=== PATIENT | female | born 1950 | race Caucasian/White ===

== ENCOUNTER 2018-01-20 19:57 | Inpatient (IN) ==
[2018-01-20] MEDS ORDERED: 0.9 % Sodium Chloride 1,000 ML IVC ONE (20:22)
--- NOTE | 2018-01-20 20:50 | Emergency Department Note ---
Disposition Clinical Impression: Elevated troponin Sepsis Qualifiers: Sepsis type: sepsis due to unspecified organism Qualified Code(s): A41.9 - Sepsis, unspecified organism UTI (urinary tract infection) Qualifiers: Urinary tract infection type: site unspecified Hematuria presence: with hematuria Qualified Code(s): N39.0 - Urinary tract infection, site not specified Disposition: Admitted As Inpatient Condition: Fair Time of Disposition: 21:39 General Adult HPI - General Chief complaint: ED General Medical Stated complaint: fever Time Seen by Provider: 01/20/18 20:22 Source: patient Mode of arrival: ambulatory Limitations: no limitations Nursing Notes Reviewed: Yes Vital Signs Reviewed: Yes - History of Present Illness HPI Narrative: Patient presents to the ED with the chief complaint of fever. Patient was recently seen at the [facility] for ovarian cancer removal. Says about 2 weeks ago. States that she was started on Coumadin for blood clots. Was discharged and presented here previously with bleeding and was subsequently transferred back to the [facility] with a gave her vitamin K and stopped her Coumadin. She states that she has felt okay until yesterday and this morning when she started having subjective fever, but more so chills and rigors. She had 1 episode of nonbloody, nonbilious emesis earlier today. No associated chest pain, shortness of breath, nausea, diarrhea, abdominal pain, pain or swelling in her legs. No cough. Pain Scale: 0 - Related Data Home Medications Medication Instructions Recorded Confirmed Loratadine [Allergy Relief] 10 mg PO DAILY 06/01/17 01/20/18 Multivitamin [Multivitamins] 1 cap PO DAILY 06/01/17 01/20/18 [place]-3/Dha/Epa/Fish Oil [Fish Oil 1 each PO DAILY 06/01/17 01/20/18 1,000 mg Softgel] Pravastatin Sodium [Pravachol] 20 mg PO QPM 06/01/17 01/20/18 Vitamin E (Dl,Tocopheryl Acet) 400 unit PO DAILY 06/11/17 01/20/18 [Vitamin E] Warfarin [Coumadin] 7.5 mg PO DAILY 01/10/18 01/20/18 Docusate Sodium [Dok] 100 mg PO BID 01/20/18 01/20/18 Previous Rx's Medication Instructions Recorded Metoprolol XL (24 HR) Succ [Toprol 50 mg PO DAILY #30 tab.er.24h 06/05/17 Xl] Polyethylene Glycol 3350 [MiraLAX] 17 gm PO DAILY PRN #30 powd.pack 08/12/17 Allergies Allergy/AdvReac Type Severity Reaction Status Date / Time azithromycin Allergy Rash Verified 01/20/18 20:08 [From Zithromax Z-[place]] Oxycodone AdvReac Dizziness Verified 01/20/18 20:09 Review of Systems: As reviewed in the HPI. All other systems reviewed are negative or normal. Past Medical History - Past Medical History Attestation: Yes The following information was validated with the patient. Source: patient Medical history: Reports: hyperlipidemia, hypertension, pulmonary embolus Surgical history: Reports: no surgical history Psychiatric history: Reports: anxiety - Social History Smoking Status: Never smoker Smokeless Tobacco Status: No Alcohol use: Reports: none Drug use: Reports: none Physical Exam - General Limitations: no limitations General appearance: alert, in no apparent distress - Head Head exam: atraumatic, normocephalic, normal inspection - Eye Eye exam: Present: normal appearance, PERRL, EOMI - ENT ENT exam: normal exam, normal oropharynx, mucous membranes moist - Chest Chest inspection: Present: normal inspection, symmetric chest wall rise - Respiratory Respiratory exam: Present: normal lung sounds bilaterally - Cardiovascular Cardiovascular exam: Present: normal rhythm, tachycardia, normal heart sounds. Absent: regular rate - Abdominal Exam Abdominal exam: Present: soft, Non-Tender. Absent: tenderness, distention, guarding, rebound, rigidity - Extremities Exam Extremities exam: Present: normal inspection, full ROM. Absent: tenderness, pedal edema - Back Exam Back exam: Present: normal inspection, full ROM. Absent: tenderness - Neurological Exam Neurological exam: Present: alert, oriented X3 - Psychiatric Psychiatric exam: Present: normal affect, normal mood - Skin Skin exam: Present: warm, dry, intact, normal color Course Course Narrative: patient presenting with presumed sepsis from UTI due to urinary frequency. BP ok now but is tachycardic. No CP/SOB. Will get sepsis labs and UA. - Reevaluation(s) Reevaluation #1: Admitted to the hospitalist. Did start on Zosyn due to recent hospital stays. HGB stable, Lactic NL. Mentating well, and cap refill remains normal. Did have a isolated low BP so will get IVF and recheck. meets sepsis criteria due to HR and WBC with UTI. Does not appear to be in septic shock and has no end organ dysfunction. Time: 21:37 Reevaluation #3: Lab did call patient is an elevated troponin at 0.05. No chest pain Vital Signs Temperature 98.6 F 01/20/18 20:09 Pulse Rate 128 01/20/18 20:09 Respiratory Rate 16 01/20/18 20:09 Blood Pressure 105/55 01/20/18 20:09 O2 Sat by Pulse Oximetry 93 01/20/18 20:09 Temperature 98.1 F 01/21/18 01:33 Pulse Rate 122 01/21/18 01:33 Respiratory Rate 16 01/21/18 01:33 Blood Pressure 101/58 01/21/18 01:33 O2 Sat by Pulse Oximetry 94 01/21/18 01:33 Oxygen Delivery Oxygen Delivery Room Air Medical Decision Making - Medical Records Medical records reviewed: Yes I reviewed the patient's medical records. - Lab Data Lab results reviewed: Yes I reviewed the patient's lab results. Result diagrams: 01/20/18 20:45 01/20/18 20:45 Lab Results 01/20/18 01/20/18 01/20/18 Range/Units 20:44 20:45 20:45 WBC 18.5 H (4.3-11.1) K/mcL RBC 2.99 L (3.82-4.97) M/mcL Hgb 9.6 L (11.5-15.4) g/dL Hct 28.4 L (35.3-44.9) % MCV 95.0 (83.0-100.0) fL MCH 32.1 (28.0-33.3) pg MCHC 33.8 (31.6-35.5) g/dL RDW 17.1 H (11.5-14.5) % Plt Count 266 (140-400) K/mcL MPV 9.0 L (9.4-12.4) fL Immature Gran % 1.5 (0-4) % Seg Neutrophils % 90.2 % Lymphocytes % 4.0 % Monocytes % 4.1 % Eosinophils % 0.0 % Basophils % 0.2 % Neutrophils # 16.7 H (1.6-8.9) K/mcL Lymphocytes # 0.7 (0.6-4.6) K/mcL Monocytes # 0.8 (0.0-1.3) K/mcL Eosinophils # 0.0 (0.0-0.6) K/mcL Basophils # 0.0 (0.0-0.2) K/mcL Nucleated RBCs/100 WBC 0.2 H (0) /100 WBC PT 35.4 H (9.4-12.1) Seconds INR 3.2 APTT 35.5 (26.0-36.0) Seconds Sodium (136-145) mEq/L Potassium (3.5-5.1) mEq/L Chloride (98-107) mEq/L Carbon Dioxide (23-29) mEq/L BUN (8-23) mg/dL Creatinine (0.60-1.20) mg/dL Est GFR ( Amer) (> 60) Est GFR (Non-Af Amer) (> 60) BUN/Creatinine Ratio (6-26) Glucose (70-105) mg/dL Calculated Osmolality (280-300) Lactic Acid 0.9 (0.5-2.2) mmol/L Calcium (8.6-10.3) mg/dL Total Bilirubin (0.3-1.0) mg/dL Direct Bilirubin (0.0-0.2) mg/dL Indirect Bilirubin (0.0-1.2) mg/dL AST (13-39) Units/L ALT (7-52) Units/L Alkaline Phosphatase (34-104) Units/L Troponin I (< 0.04) ng/mL Serum Total Protein (6.4-8.9) g/dL Albumin (3.5-5.7) g/dL Globulin (2.4-3.5) g/dL Albumin/Globulin Ratio (1.1-2.2) Lipase (11-82) Units/L Urine Color (Yellow) Urine Clarity (Clear) Urine pH (5.0-8.0) pH Units Ur Specific [place] (1.010-1.025) Urine Protein (Neg-Trace) mg/dL Urine Glucose (UA) (Normal) mg/dL Urine Ketones (Negative) mg/dL Urine Blood (Negative) Urine Nitrite (Negative) Urine Bilirubin (Negative) Urine Urobilinogen (Normal) mg/dL Ur Leukocyte Esterase (Negative) Urine Microscopic RBC (0-3) per hpf Urine Microscopic WBC (0-3) per hpf Ur Squamous Epith Cells (None-Few) per lpf Urine Bacteria (None-Few) per hpf Ur Culture Indicated? (NO) 01/20/18 01/20/18 Range/Units 20:45 20:58 WBC (4.3-11.1) K/mcL RBC (3.82-4.97) M/mcL Hgb (11.5-15.4) g/dL Hct (35.3-44.9) % MCV (83.0-100.0) fL MCH (28.0-33.3) pg MCHC (31.6-35.5) g/dL RDW (11.5-14.5) % Plt Count (140-400) K/mcL MPV (9.4-12.4) fL Immature Gran % (0-4) % Seg Neutrophils % % Lymphocytes % % Monocytes % % Eosinophils % % Basophils % % Neutrophils # (1.6-8.9) K/mcL Lymphocytes # (0.6-4.6) K/mcL Monocytes # (0.0-1.3) K/mcL Eosinophils # (0.0-0.6) K/mcL Basophils # (0.0-0.2) K/mcL Nucleated RBCs/100 WBC (0) /100 WBC PT (9.4-12.1) Seconds INR APTT (26.0-36.0) Seconds Sodium 133 L (136-145) mEq/L Potassium 3.8 (3.5-5.1) mEq/L Chloride 102 (98-107) mEq/L Carbon Dioxide 23 (23-29) mEq/L BUN 14 (8-23) mg/dL Creatinine 0.56 L (0.60-1.20) mg/dL Est GFR ( Amer) > 60 (> 60) Est GFR (Non-Af Amer) > 60 (> 60) BUN/Creatinine Ratio 25 (6-26) Glucose 144 H (70-105) mg/dL Calculated Osmolality 279 L (280-300) Lactic Acid (0.5-2.2) mmol/L Calcium 9.4 (8.6-10.3) mg/dL Total Bilirubin 1.4 H (0.3-1.0) mg/dL Direct Bilirubin 0.3 H (0.0-0.2) mg/dL Indirect Bilirubin 1.1 (0.0-1.2) mg/dL AST 38 (13-39) Units/L ALT 54 H (7-52) Units/L Alkaline Phosphatase 75 (34-104) Units/L Troponin I 0.05 H* (< 0.04) ng/mL Serum Total Protein 6.2 L (6.4-8.9) g/dL Albumin 2.9 L (3.5-5.7) g/dL Globulin 3.3 (2.4-3.5) g/dL Albumin/Globulin Ratio 0.9 L (1.1-2.2) Lipase 43 (11-82) Units/L Urine Color Yellow (Yellow) Urine Clarity Turbid A (Clear) Urine pH 6.0 (5.0-8.0) pH Units Ur Specific [place] 1.011 (1.010-1.025) Urine Protein 30 H (Neg-Trace) mg/dL Urine Glucose (UA) Normal (Normal) mg/dL Urine Ketones Negative (Negative) mg/dL Urine Blood Moderate H (Negative) Urine Nitrite Positive A (Negative) Urine Bilirubin Negative (Negative) Urine Urobilinogen Normal (Normal) mg/dL Ur Leukocyte Esterase Large H (Negative) Urine Microscopic RBC 0-3 (0-3) per hpf Urine Microscopic WBC TNTC H (0-3) per hpf Ur Squamous Epith Cells Few (None-Few) per lpf Urine Bacteria Many H (None-Few) per hpf Ur Culture Indicated? YES A (NO) - Radiology Data Radiology results reviewed: Yes I reviewed the patient's radiology results. - EKG Data EKG #1 EKG attestation: Yes I reviewed and interpreted this EKG. EKG results narrative: Sinus tach, rate 120, LIMA 126, QRS 89, QTC 370, normal axis, no acute ischemic changes Attestation Statement - Attestation Attestation: I examined this patient and my medical decision-making was reviewed with the Resident Physician. I agree with the documented findings, disposition and treatment plan as described except to the extent set forth below.
[2018-01-20 20:59] LABS: Basophils % 0.2 %; Hematocrit 28.4 % (35.3-44.9); Hemoglobin 9.6 g/dL (11.5-15.4); Immature Granulocytes % 1.5 % (0-4); Lymphocytes # 0.7 K/mcL (0.6-4.6); Mean Corpuscular HGB Conc 33.8 g/dL (31.6-35.5); Mean Corpuscular Hemoglobin 32.1 pg (28.0-33.3); Monocytes # 0.8 K/mcL (0.0-1.3); Monocytes % 4.1 %; Neutrophils # 16.7 K/mcL (1.6-8.9); Nucleated Red Blood Cells 0.2 /100 WBC (0); Platelet Count 266 K/mcL (140-400); Red Blood Count 2.99 M/mcL (3.82-4.97); Red Cell Distribution Width 17.1 % (11.5-14.5); Segmented Neutrophils % 90.2 %
[2018-01-20 21:05] LABS: Bilirubin,Urine Negative (Negative); Blood,Urine Moderate (Negative); Clarity,Urine Turbid (Clear); Color,Urine Yellow (Yellow); Glucose,Urine (UA) Normal (Normal); Ketones,Urine Negative (Negative); Leukocyte Esterase,Urine Large (Negative); Nitrite,Urine Positive (Negative); Protein,Urine 30 mg/dL (Neg-Trace); Specific Gravity,Urine 1.011 (1.010-1.025); Urobilinogen,Urine Normal (Normal)
[2018-01-20 21:05] LABS: INR 3.2; Prothrombin Time 35.4 Seconds (9.4-12.1)
[2018-01-20 21:07] LABS: Activated Partial Thrombo Time 35.5 Seconds (26.0-36.0)
[2018-01-20 21:25] LABS: Bacteria,Urine Many per hpf (None-Few); RBC,Urine 0-3 per hpf (0-3); Squamous Epithelial Cell,Urine Few per lpf (None-Few); WBC,Urine TNTC per hpf (0-3)
[2018-01-20] MEDS ORDERED: Piperacillin/Tazobactam 3.375 GM in 0.9 % Sodium Chloride Mini Bag 100 ML IVPB ONE (21:31)
[2018-01-20] MEDS: 0.9 % Sodium Chloride 1,000 ML IVC SCH ×2 (21:47→23:31)
[2018-01-20] MEDS ORDERED: GI Cocktail 40 ML EACH PO ONE (21:48)
[2018-01-20 22:29] LABS: Alanine Aminotransferase 54 Units/L (7-52); Albumin 2.9 g/dL (3.5-5.7); Albumin/Globulin Ratio 0.9 (1.1-2.2); Alkaline Phosphatase 75 Units/L (34-104); Aspartate Amino Transferase 38 Units/L (13-39); BUN/Creatinine Ratio 25 (6-26); Bilirubin,Direct 0.3 mg/dL (0.0-0.2); Bilirubin,Indirect 1.1 mg/dL (0.0-1.2); Bilirubin,Total 1.4 mg/dL (0.3-1.0); Blood Urea Nitrogen 14 mg/dL (8-23); Calcium 9.4 mg/dL (8.6-10.3); Carbon Dioxide 23 mEq/L (23-29); Chloride 102 mEq/L (98-107); Globulin 3.3 g/dL (2.4-3.5); Glucose 144 mg/dL (70-105); Lipase 43 Units/L (11-82); Osmolality,Calculated 279 (280-300); Potassium 3.8 mEq/L (3.5-5.1); Sodium 133 mEq/L (136-145); Total Protein 6.2 g/dL (6.4-8.9); eGFR For African Americans > 60 (> 60); eGFR For Non-African Americans > 60 (> 60)
[2018-01-20] MEDS ORDERED: Naloxone 0.4 MG/ML INJ IVP PRN (22:30)
--- NOTE | 2018-01-20 22:37 | Internal Med History&Physical ---
Date of Encounter: 01/20/18 Time of Encounter: 22:35 Internal Medicine - H&P: HPI Chief complaint: chills, rigors, urinary frequency History of present illness: Ms. Gaffney is a 68 year old female who presents with UTI and SIRS syndrome She started to develop symptoms yesterday with urinary frequency with nocturia almost every hour last night that did not improve with time. Today she developed emesis that is associated with half an hour of chills and rhinitis at about 3:30 PM. Of note she had a complicated history to include initial right lower extremity DVT and a PE that was provoked by ovarian cancer in last May. She subsequently underwent neoadjuvant chemotherapy before completing a total abdominal hysterectomy, bilateral oophorectomy at the [facility] on this year. She also report rectocele repair. Postoperatively surgery was complicated by bleeding where she was at [facility] for 1 week and was discharged on Friday. At [facility] her anticoagulation was reversed by vitamin K and was watched. She improve with conservative therapy and was discharged back on Coumadin this past Friday. EKG personally reviewed with rate 120, sinus tachycardia Past Med Surg Social Fam HX - Past Medical History Medical history: hyperlipidemia, hypertension, pulmonary embolus Psychiatric history: anxiety - Past Surgical History Surgical History: no surgical history - Social History Smoking Status: Never smoker Smokeless Tobacco Status: No Alcohol use: none Drug use: none - Family History Father Family Member Ethnicity: Non- Living Status: Hx Family Cardiac Disorders: Yes Mother Hx Family Respiratory Disorders: Yes Hx Family Neurologic Disorders: Yes (CVA) Internal Medicine - H&P: Meds Loratadine [Allergy Relief] 10 mg PO DAILY 06/01/17 [History] Multivitamin [Multivitamins] 1 cap PO DAILY 06/01/17 [History] [place]-3/Dha/Epa/Fish Oil [Fish Oil 1,000 mg Softgel] 1 each PO DAILY 06/01/17 [ History] Pravastatin Sodium [Pravachol] 20 mg PO QPM 06/01/17 [History] Metoprolol XL (24 HR) Succ [Toprol Xl] 50 mg PO DAILY #30 tab.er.24h 06/05/17 [ Rx] Vitamin E (Dl,Tocopheryl Acet) [Vitamin E] 400 unit PO DAILY 06/11/17 [History] Polyethylene Glycol 3350 [MiraLAX] 17 gm PO DAILY PRN #30 powd.pack 08/12/17 [Rx ] Warfarin [Coumadin] 7.5 mg PO DAILY 01/10/18 [History] Docusate Sodium [Dok] 100 mg PO BID 01/20/18 [History] 3 Allergy/AdvReac Type Severity Reaction Status Date / Time azithromycin Allergy Rash Verified 01/20/18 20:08 [From Zithromax Z-[place]] Oxycodone AdvReac Dizziness Verified 01/20/18 20:09 All Systems PM: A 10-system review of systems was performed and is negative for pertinent findings except as documented above in the HPI. Review of systems: ROS 14 point review of systems reviewed as best as possible given presentation. Pertinent positive or negative as per HPI or otherwise reviewed as negative - Constitutional Vitals: Temp Pulse Resp BP Pulse Ox 98.6 F 108 16 129/68 94 01/20/18 20:09 01/20/18 21:42 01/20/18 21:42 01/20/18 21:42 01/20/18 21:42 Exam: General - AAO x 3 Psych - Appropriate affect/speech. No agitation Eyes - PHILIPP. Eye lids intact. No scleral icterus Heart - Sinus tachycardia. RRR. S1 and S2 present. No added HS/murmurs appreciated. No elevated JVD appreciated. Lung - Adequate air entry b/l, No crackles/wheezes appreciated GI - Soft, non-tender. No hepatosplenomegaly/ascites. BS+ - No CVA/suprapubic tenderness or palpable bladder distension Skin - Intact. No rash/petechiae/ecchymosis. Warm extremities MSK - Joints with normal ROM. No joint swellings Internal Med - H&P Results - Labs CBC & Chem 7: 01/20/18 20:45 01/20/18 20:45 Labs: Short CBC 01/20/18 Range/Units 20:45 WBC 18.5 H (4.3-11.1) K/mcL Hgb 9.6 L (11.5-15.4) g/dL Hct 28.4 L (35.3-44.9) % Plt Count 266 (140-400) K/mcL Neutrophils # 16.7 H (1.6-8.9) K/mcL BMP 05/29/18 20:45 Sodium 133 L Potassium 3.8 Chloride 102 Carbon Dioxide 23 BUN 14 Creatinine 0.56 L Glucose 144 H Calcium 9.4 Liver Function 01/20/18 Range/Units 20:45 Total Bilirubin 1.4 H (0.3-1.0) mg/dL Direct Bilirubin 0.3 H (0.0-0.2) mg/dL AST 38 (13-39) Units/L ALT 54 H (7-52) Units/L Alkaline Phosphatase 75 (34-104) Units/L Albumin 2.9 L (3.5-5.7) g/dL Urine 01/20/18 Range/Units 20:58 Urine Color Yellow (Yellow) Urine Clarity Turbid A (Clear) Urine pH 6.0 (5.0-8.0) pH Units Ur Specific [place] 1.011 (1.010-1.025) Urine Protein 30 H (Neg-Trace) mg/dL Urine Glucose (UA) Normal (Normal) mg/dL - Assessment and plan (1) UTI (urinary tract infection) Current Visit: Yes Status: Acute Assessment and plan: empiric IV rocephin Urine cx, blood cx pend Qualifiers: Urinary tract infection type: site unspecified Hematuria presence: with hematuria Qualified Code(s): N39.0 - Urinary tract infection, site not specified; R31.9 - Hematuria, unspecified (2) SIRS (systemic inflammatory response syndrome) Current Visit: Yes Status: Acute Assessment and plan: due to UTI, empiric antibiotics above (3) Ovarian cancer Current Visit: Yes Status: Acute Assessment and plan: s/p ENRRIQUE/BSO c/b bleeding which improved with conservative therapy continue outpatient care with onc and gynecological assistant onc Qualifiers: Laterality: left Qualified Code(s): 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 Due to bleeding recently, target low 2 (6) Atrial flutter with rapid ventricular response Current Visit: No Status: Acute Assessment and plan: hx of AFib/Flutter continue maxwell saud - Time Spent With Patient Total time spent is greater than 50% in coordination of care (as documented) at patient's floor/unit and/or counseling patient:
[2018-01-20 22:52] LABS: Troponin I 0.05 ng/mL (< 0.04)
[2018-01-20] MEDS ORDERED: Ondansetron 4 MG/2 ML VIAL IVP ONE (23:59)
[2018-01-21] MEDS ORDERED: Ondansetron 4 MG/2 ML VIAL ONE (00:03)
--- NOTE | 2018-01-21 01:51 | Emergency Department Note ---
Disposition Clinical Impression: Elevated troponin Sepsis Qualifiers: Sepsis type: sepsis due to unspecified organism Qualified Code(s): A41.9 - Sepsis, unspecified organism UTI (urinary tract infection) Qualifiers: Urinary tract infection type: site unspecified Hematuria presence: with hematuria Qualified Code(s): N39.0 - Urinary tract infection, site not specified Disposition: Admitted As Inpatient Condition: Fair General Adult HPI - General Chief complaint: ED General Medical Stated complaint: fever Time Seen by Provider: 01/20/18 20:22 Source: patient Mode of arrival: ambulatory Limitations: no limitations - History of Present Illness Pain Scale: 0 - Related Data Home Medications Medication Instructions Recorded Confirmed Loratadine [Allergy Relief] 10 mg PO DAILY 06/01/17 01/20/18 Multivitamin [Multivitamins] 1 cap PO DAILY 06/01/17 01/20/18 [place]-3/Dha/Epa/Fish Oil [Fish Oil 1 each PO DAILY 06/01/17 01/20/18 1,000 mg Softgel] Pravastatin Sodium [Pravachol] 20 mg PO QPM 06/01/17 01/20/18 Vitamin E (Dl,Tocopheryl Acet) 400 unit PO DAILY 06/11/17 01/20/18 [Vitamin E] Warfarin [Coumadin] 7.5 mg PO DAILY 01/10/18 01/20/18 Docusate Sodium [Dok] 100 mg PO BID 01/20/18 01/20/18 Previous Rx's Medication Instructions Recorded Metoprolol XL (24 HR) Succ [Toprol 50 mg PO DAILY #30 tab.er.24h 06/05/17 Xl] Polyethylene Glycol 3350 [MiraLAX] 17 gm PO DAILY PRN #30 powd.pack 08/12/17 Allergies Allergy/AdvReac Type Severity Reaction Status Date / Time azithromycin Allergy Rash Verified 01/20/18 20:08 [From Zithromax Z-[place]] Oxycodone AdvReac Dizziness Verified 01/20/18 20:09 Past Medical History - Past Medical History Medical history: Reports: cancer, hyperlipidemia, hypertension, pulmonary embolus Surgical history: Reports: no surgical history Psychiatric history: Reports: anxiety - Social History Smoking Status: Never smoker Smokeless Tobacco Status: No Alcohol use: Reports: none Drug use: Reports: none Physical Exam - General Limitations: no limitations General appearance: alert, in no apparent distress Course Vital Signs Temperature 98.6 F 01/20/18 20:09 Pulse Rate 128 01/20/18 20:09 Respiratory Rate 16 01/20/18 20:09 Blood Pressure 105/55 01/20/18 20:09 O2 Sat by Pulse Oximetry 93 01/20/18 20:09 Temperature 98.1 F 01/21/18 01:33 Pulse Rate 122 01/21/18 01:33 Respiratory Rate 16 01/21/18 01:33 Blood Pressure 101/58 01/21/18 01:33 O2 Sat by Pulse Oximetry 94 01/21/18 01:33 Oxygen Delivery Oxygen Delivery Room Air Medical Decision Making - Lab Data Result diagrams: 01/20/18 20:45 01/20/18 20:45 Lab Results 01/20/18 01/20/18 01/20/18 Range/Units 20:44 20:45 20:45 WBC 18.5 H (4.3-11.1) K/mcL RBC 2.99 L (3.82-4.97) M/mcL Hgb 9.6 L (11.5-15.4) g/dL Hct 28.4 L (35.3-44.9) % MCV 95.0 (83.0-100.0) fL MCH 32.1 (28.0-33.3) pg MCHC 33.8 (31.6-35.5) g/dL RDW 17.1 H (11.5-14.5) % Plt Count 266 (140-400) K/mcL MPV 9.0 L (9.4-12.4) fL Immature Gran % 1.5 (0-4) % Seg Neutrophils % 90.2 % Lymphocytes % 4.0 % Monocytes % 4.1 % Eosinophils % 0.0 % Basophils % 0.2 % Neutrophils # 16.7 H (1.6-8.9) K/mcL Lymphocytes # 0.7 (0.6-4.6) K/mcL Monocytes # 0.8 (0.0-1.3) K/mcL Eosinophils # 0.0 (0.0-0.6) K/mcL Basophils # 0.0 (0.0-0.2) K/mcL Nucleated RBCs/100 WBC 0.2 H (0) /100 WBC PT 35.4 H (9.4-12.1) Seconds INR 3.2 APTT 35.5 (26.0-36.0) Seconds Sodium (136-145) mEq/L Potassium (3.5-5.1) mEq/L Chloride (98-107) mEq/L Carbon Dioxide (23-29) mEq/L BUN (8-23) mg/dL Creatinine (0.60-1.20) mg/dL Est GFR ( Amer) (> 60) Est GFR (Non-Af Amer) (> 60) BUN/Creatinine Ratio (6-26) Glucose (70-105) mg/dL Calculated Osmolality (280-300) Lactic Acid 0.9 (0.5-2.2) mmol/L Calcium (8.6-10.3) mg/dL Total Bilirubin (0.3-1.0) mg/dL Direct Bilirubin (0.0-0.2) mg/dL Indirect Bilirubin (0.0-1.2) mg/dL AST (13-39) Units/L ALT (7-52) Units/L Alkaline Phosphatase (34-104) Units/L Troponin I (< 0.04) ng/mL Serum Total Protein (6.4-8.9) g/dL Albumin (3.5-5.7) g/dL Globulin (2.4-3.5) g/dL Albumin/Globulin Ratio (1.1-2.2) Lipase (11-82) Units/L Urine Color (Yellow) Urine Clarity (Clear) Urine pH (5.0-8.0) pH Units Ur Specific [place] (1.010-1.025) Urine Protein (Neg-Trace) mg/dL Urine Glucose (UA) (Normal) mg/dL Urine Ketones (Negative) mg/dL Urine Blood (Negative) Urine Nitrite (Negative) Urine Bilirubin (Negative) Urine Urobilinogen (Normal) mg/dL Ur Leukocyte Esterase (Negative) Urine Microscopic RBC (0-3) per hpf Urine Microscopic WBC (0-3) per hpf Ur Squamous Epith Cells (None-Few) per lpf Urine Bacteria (None-Few) per hpf Ur Culture Indicated? (NO) 01/20/18 01/20/18 Range/Units 20:45 20:58 WBC (4.3-11.1) K/mcL RBC (3.82-4.97) M/mcL Hgb (11.5-15.4) g/dL Hct (35.3-44.9) % MCV (83.0-100.0) fL MCH (28.0-33.3) pg MCHC (31.6-35.5) g/dL RDW (11.5-14.5) % Plt Count (140-400) K/mcL MPV (9.4-12.4) fL Immature Gran % (0-4) % Seg Neutrophils % % Lymphocytes % % Monocytes % % Eosinophils % % Basophils % % Neutrophils # (1.6-8.9) K/mcL Lymphocytes # (0.6-4.6) K/mcL Monocytes # (0.0-1.3) K/mcL Eosinophils # (0.0-0.6) K/mcL Basophils # (0.0-0.2) K/mcL Nucleated RBCs/100 WBC (0) /100 WBC PT (9.4-12.1) Seconds INR APTT (26.0-36.0) Seconds Sodium 133 L (136-145) mEq/L Potassium 3.8 (3.5-5.1) mEq/L Chloride 102 (98-107) mEq/L Carbon Dioxide 23 (23-29) mEq/L BUN 14 (8-23) mg/dL Creatinine 0.56 L (0.60-1.20) mg/dL Est GFR ( Amer) > 60 (> 60) Est GFR (Non-Af Amer) > 60 (> 60) BUN/Creatinine Ratio 25 (6-26) Glucose 144 H (70-105) mg/dL Calculated Osmolality 279 L (280-300) Lactic Acid (0.5-2.2) mmol/L Calcium 9.4 (8.6-10.3) mg/dL Total Bilirubin 1.4 H (0.3-1.0) mg/dL Direct Bilirubin 0.3 H (0.0-0.2) mg/dL Indirect Bilirubin 1.1 (0.0-1.2) mg/dL AST 38 (13-39) Units/L ALT 54 H (7-52) Units/L Alkaline Phosphatase 75 (34-104) Units/L Troponin I 0.05 H* (< 0.04) ng/mL Serum Total Protein 6.2 L (6.4-8.9) g/dL Albumin 2.9 L (3.5-5.7) g/dL Globulin 3.3 (2.4-3.5) g/dL Albumin/Globulin Ratio 0.9 L (1.1-2.2) Lipase 43 (11-82) Units/L Urine Color Yellow (Yellow) Urine Clarity Turbid A (Clear) Urine pH 6.0 (5.0-8.0) pH Units Ur Specific [place] 1.011 (1.010-1.025) Urine Protein 30 H (Neg-Trace) mg/dL Urine Glucose (UA) Normal (Normal) mg/dL Urine Ketones Negative (Negative) mg/dL Urine Blood Moderate H (Negative) Urine Nitrite Positive A (Negative) Urine Bilirubin Negative (Negative) Urine Urobilinogen Normal (Normal) mg/dL Ur Leukocyte Esterase Large H (Negative) Urine Microscopic RBC 0-3 (0-3) per hpf Urine Microscopic WBC TNTC H (0-3) per hpf Ur Squamous Epith Cells Few (None-Few) per lpf Urine Bacteria Many H (None-Few) per hpf Ur Culture Indicated? YES A (NO) Attestation Statement - Attestation Attestation: I examined this patient and my medical decision-making was reviewed with the Resident Physician. I agree with the documented findings, disposition and treatment plan as described except to the extent set forth below. 68-year-old female since ED because of fever and generalized illness. She is spinning from a time in the hospital recently starting with cancer surgery on ovarian tumor last month. She had previously had PE that was unprovoked leading to the diagnosis of the ovarian cancer. She was put back on her Coumadin after surgery and developed postoperative pelvic bleeding that required multiple transfusions. She is done well since then but then today presents ED because of fever and generalized illness. Complains of polyuria. No productive cough. No chest pain. No current abdominal pain. Complains of generalized weakness. Pleasant female in no apparent physical distress. She is tachycardic with low- grade fever. Oropharynx is clear extremities remains dry. Neck supple. Chest is clear to auscultation bilaterally. Abdomen soft, nondistended with no apparent tenderness. No CVA tenderness. She had significant leukocytes and urine. Lactate was normal. Renal function was preserved Given her recent hospitalization she was given IV Zosyn and will be admitted for further treatment. The high probability of a clinically significant, sudden or life threatening deterioration of the [renovascular] system(s) required my full and direct attention, intervention and personal management. The aggregate critical care time was [10] minutes. This time is in addition to time spent performing reported procedures but includes the following: [x] Data Review and interpretation [x] Patient assessment and monitoring of vital signs [x] Documentation [x] Medication orders and management
[2018-01-21] MEDS: 0.9 % Sodium Chloride 1,000 ML IVC SCH ×3 (01:56→21:31)
[2018-01-21 05:23] LABS: Basophils % 0.1 %; Hemoglobin 8.8 g/dL (11.5-15.4); Immature Granulocytes % 0.9 % (0-4); Lymphocytes # 1.1 K/mcL (0.6-4.6); Lymphocytes % 5.9 %; Mean Corpuscular HGB Conc 32.6 g/dL (31.6-35.5); Mean Corpuscular Hemoglobin 31.7 pg (28.0-33.3); Mean Corpuscular Volume 97.1 fL (83.0-100.0); Mean Platelet Volume 8.9 fL (9.4-12.4); Monocytes % 5.6 %; Neutrophils # 15.8 K/mcL (1.6-8.9); Nucleated Red Blood Cells 0.1 /100 WBC (0); Platelet Count 223 K/mcL (140-400); Red Blood Count 2.78 M/mcL (3.82-4.97); Red Cell Distribution Width 17.2 % (11.5-14.5); Segmented Neutrophils % 87.5 %
[2018-01-21 05:31] LABS: INR 3.4; Prothrombin Time 37.6 Seconds (9.4-12.1)
[2018-01-21 05:42] LABS: BUN/Creatinine Ratio 24 (6-26); Blood Urea Nitrogen 13 mg/dL (8-23); Calcium 8.7 mg/dL (8.6-10.3); Carbon Dioxide 25 mEq/L (23-29); Chloride 109 mEq/L (98-107); Glucose 133 mg/dL (70-105); Osmolality,Calculated 288 (280-300); Potassium 3.6 mEq/L (3.5-5.1); Sodium 138 mEq/L (136-145); eGFR For African Americans > 60 (> 60); eGFR For Non-African Americans > 60 (> 60)
[2018-01-21 05:50] LABS: Platelet Estimate Normal (Normal)
[2018-01-21] MEDS: Loratadine 10 MG TABLET PO SCH (08:39)
[2018-01-21] MEDS: cefTRIAXone 2,000 MG in Water for inj. (sterile) 20 ML 20 ML IVP SCH (08:40)
[2018-01-21] MEDS: Metoprolol XL (24 HR) Succ 50 MG TAB.ER.24H PO SCH (08:42)
[2018-01-21] MEDS: Acetaminophen 325 MG TABLET PO PRN (08:47)
[2018-01-21] MEDS ORDERED: Metoprolol XL (24 HR) Succ 50 MG TAB.ER.24H PO SCH (09:00)
--- NOTE | 2018-01-21 14:43 | Electrocardiograph Report ---
[address] [place], [place] [address] Test Date: 2018-01-20 Pat Name: Sasha Gaffney Department: 103 Room: 3A63 Gender: F Calculation Clerk: DIANELYS : 1950 Requested By: [id number] Order Number: [id number] Reading MD: Lety Gomes Measurements Intervals [place] Rate: 120 P: 54 OR: 126 QRS: 44 QRSD: 89 T: 46 QT: 299 QTc: 370 Interpretive Statements SINUS TACHYCARDIA Electronically Signed On 01-21-2018 14:41:49 EDT by Lety Gomes
--- NOTE | 2018-01-21 16:25 | Internal Med Progress Note ---
Date of Encounter: 01/21/18 Time of Encounter: 11:30 - Assessment and plan (1) UTI (urinary tract infection) Current Visit: Yes Status: Acute Assessment and plan: empiric IV rocephin Urine cx, blood cx pend 01/21: Day #2 IV Rocephin. Await culture data. Qualifiers: Urinary tract infection type: site unspecified Hematuria presence: with hematuria Qualified Code(s): N39.0 - Urinary tract infection, site not specified; R31.9 - Hematuria, unspecified (2) Atrial flutter with rapid ventricular response Current Visit: No Status: Acute Assessment and plan: hx of AFib/Flutter continue maxwell saud Patient is super therapeutic with Coumadin. INR 3.4. Hold Coumadin tonight. Monitor. Repeat INR in morning. (3) HTN (hypertension) Current Visit: No Status: Chronic Assessment and plan: Pressure controlled, continue home medications. Qualifiers: Hypertension type: essential hypertension Qualified Code(s): I10 - Essential (primary) hypertension (4) VTE (venous thromboembolism) Current Visit: Yes Status: Acute Assessment and plan: Provoked by cancer on coumadin Due to elevated INR, will hold for randy trend INR daily , target 2-3 . 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 Gaffney is a 68 year old female who presents with UTI and SIRS syndrome She started to develop symptoms yesterday with urinary frequency with nocturia almost every hour last night that did not improve with time. Today she developed emesis that is associated with half an hour of chills and rhinitis at about 3:30 PM. Of note she had a complicated history to include initial right lower extremity DVT and a PE that was provoked by ovarian cancer in last May. She subsequently underwent neoadjuvant chemotherapy before completing a total abdominal hysterectomy, bilateral oophorectomy at the [facility] on this year. She also report rectocele repair. Postoperatively surgery was complicated by bleeding where she was at [facility] for 1 week and was discharged on Friday. At [facility] her anticoagulation was reversed by vitamin K and was watched. She improve with conservative therapy and was discharged back on Coumadin this past Friday. EKG personally reviewed with rate 120, sinus tachycardia 01/21: Patient states she is feeling much better today. No fevers or chills. No nausea, vomiting, diarrhea. No abdominal pain. She is tolerating by mouth' s. - Constitutional Vitals: Temp Pulse Resp BP Pulse Ox 98.5 F 91 18 109/67 95 01/21/18 11:40 01/21/18 11:40 01/21/18 11:40 01/21/18 11:40 01/21/18 11:40 General appearance: Present: A&O X 3 Exam: Mildly diaphoretic, ill appearing, pleasant and conversant - Head Head exam: Present: atraumatic, normocephalic - Eye Eye exam: Present: PERRL, conjuntiva pink, sclera anicteric Pupils: Present: PERRL - Neck Neck exam general surgery: Present: supple, trachea midline. Absent: lymphadenopathy - Respiratory Respiratory exam: Present: CTAB. Absent: accessory muscle use, rales, rhonchi, wheezes - Cardiovascular Cardiovascular exam: Present: RRR, +S1, +S2. Absent: diastolic murmur, gallop, rubs, systolic murmur - GI/Abdominal GI/Abdominal exam: Present: normal bowel sounds, soft, no peritoneal signs. Absent: distended, tenderness - Extremities Exam Extremities exam: Present: warm, radial pulses palpable and symmetrical. Absent : calf tenderness, cyanotic, pedal edema - Neurological Exam Neurological exam: Present: CN II-XII intact, oriented X3, no focal deficits. Absent: pronater drift, facial droop, speech deficit - Skin Skin exam: Present: dry, intact Internal Medicine: Result - Labs CBC & Chem 7: 01/21/18 05:05 01/21/18 05:05 Labs: Short CBC 01/21/18 Range/Units 05:05 WBC 18.0 H (4.3-11.1) K/mcL Hgb 8.8 L (11.5-15.4) g/dL Hct 27.0 L (35.3-44.9) % Plt Count 223 (140-400) K/mcL Neutrophils # 15.8 H (1.6-8.9) K/mcL BMP 01/21/18 05:05 Sodium 138 Potassium 3.6 Chloride 109 H Carbon Dioxide 25 BUN 13 Creatinine 0.54 L Glucose 133 H Calcium 8.7 Cardiac Enzymes 01/21/18 Range/Units 05:05 Troponin I 0.03 (< 0.04) ng/mL - ABG Interpretation ABG results: PT/INR, D-dimer PT 37.6 Seconds (9.4-12.1) H 01/21/18 05:05 - VTE Documentation of Mechanical Device: Intermittent pneumatic compression device Consult Discharge Plan - Plan Referrals: Bishop Cevallos MD [Primary Care Provider] -
[2018-01-21] MEDS ORDERED: Warfarin perPT PO PRN (18:00)
[2018-01-22] MEDS: 0.9 % Sodium Chloride 1,000 ML IVC SCH ×2 (07:11→17:26)
[2018-01-22 07:16] LABS: Prothrombin Time 32.9 Seconds (9.4-12.1)
[2018-01-22 07:24] LABS: BUN/Creatinine Ratio 27 (6-26); Basophils % 0.2 %; Blood Urea Nitrogen 11 mg/dL (8-23); Calcium 8.7 mg/dL (8.6-10.3); Carbon Dioxide 24 mEq/L (23-29); Chloride 110 mEq/L (98-107); Eosinophils # 0.1 K/mcL (0.0-0.6); Eosinophils % 1.1 %; Glucose 89 mg/dL (70-105); Hematocrit 29.1 % (35.3-44.9); Hemoglobin 9.1 g/dL (11.5-15.4); Immature Granulocytes % 0.8 % (0-4); Lymphocytes % 10.1 %; Mean Corpuscular HGB Conc 31.3 g/dL (31.6-35.5); Mean Corpuscular Hemoglobin 30.6 pg (28.0-33.3); Mean Platelet Volume 9.1 fL (9.4-12.4); Monocytes # 0.6 K/mcL (0.0-1.3); Monocytes % 6.6 %; Neutrophils # 7.8 K/mcL (1.6-8.9); Osmolality,Calculated 287 (280-300); Platelet Count 241 K/mcL (140-400); Potassium 3.7 mEq/L (3.5-5.1); Red Blood Count 2.97 M/mcL (3.82-4.97); Red Cell Distribution Width 17.2 % (11.5-14.5); Segmented Neutrophils % 81.2 %; Sodium 139 mEq/L (136-145); eGFR For African Americans > 60 (> 60); eGFR For Non-African Americans > 60 (> 60)
--- NOTE | 2018-01-22 10:09 | Internal Med Progress Note ---
Date of Encounter: 01/22/18 Time of Encounter: 10:10 - Assessment and plan (1) Sepsis Current Visit: Yes Status: Acute Assessment and plan: Due to UTI, on Rocephin. Urine culture and sensitivity results pending Qualifiers: Sepsis type: sepsis due to unspecified organism Qualified Code(s): A41.9 - Sepsis, unspecified organism (2) UTI (urinary tract infection) Current Visit: Yes Status: Acute Assessment and plan: Pt denies dysuria, frequency, or urgency. Urine culture and sensitivity results pending. Low grade temp of 99.1 but has improved since noon. Qualifiers: Urinary tract infection type: site unspecified Hematuria presence: with hematuria Qualified Code(s): N39.0 - Urinary tract infection, site not specified; R31.9 - Hematuria, unspecified (3) Atrial flutter with rapid ventricular response Current Visit: No Status: Acute Assessment and plan: hx of AFib/Flutter. Continue maxwell saud. Patient was super therapeutic with Coumadin. INR 3.O down from 3.4. Pharmacy to dose Coumadin. INR monitoring daily. (4) DVT (deep venous thrombosis) Current Visit: No Status: Acute Qualifiers: DVT location: lower extremity Affected thrombotic vein of extremity: femoral Chronicity: acute Laterality: right Qualified Code(s): I82.411 - Acute embolism and thrombosis of right femoral vein (5) Ovarian mass Current Visit: No Status: Acute (6) HTN (hypertension) Current Visit: No Status: Chronic Qualifiers: Hypertension type: essential hypertension Qualified Code(s): I10 - Essential (primary) hypertension - Time Spent With Patient Total time spent is greater than 50% in coordination of care (as documented) at patient's floor/unit and/or counseling patient: less than 15 minutes - Constitutional Vitals: Temp Pulse Resp BP Pulse Ox 98.3 F 104 16 136/71 95 01/22/18 07:51 01/22/18 07:51 01/22/18 07:51 01/22/18 07:51 01/22/18 07:51 General appearance: Present: A&O X 3 - Head Head exam: Present: atraumatic, normocephalic - Eye Eye exam: Present: PERRL, conjuntiva pink, sclera anicteric Pupils: Present: PERRL - Neck Neck exam general surgery: Present: supple, trachea midline. Absent: lymphadenopathy - Respiratory Respiratory exam: Present: CTAB. Absent: accessory muscle use, rales, rhonchi, wheezes - Cardiovascular Cardiovascular exam: Present: RRR, +S1, +S2. Absent: diastolic murmur, gallop, rubs, systolic murmur - GI/Abdominal GI/Abdominal exam: Present: normal bowel sounds, soft, no peritoneal signs. Absent: distended, tenderness - Extremities Exam Extremities exam: Present: warm, radial pulses palpable and symmetrical. Absent : calf tenderness, cyanotic, pedal edema - Neurological Exam Neurological exam: Present: CN II-XII intact, oriented X3, no focal deficits. Absent: pronater drift, facial droop, speech deficit - Skin Skin exam: Present: dry, intact Internal Medicine: Result - Labs CBC & Chem 7: 01/22/18 06:52 01/22/18 06:52 Labs: Short CBC 01/22/18 Range/Units 06:52 WBC 9.7 (4.3-11.1) K/mcL Hgb 9.1 L (11.5-15.4) g/dL Hct 29.1 L (35.3-44.9) % Plt Count 241 (140-400) K/mcL Neutrophils # 7.8 (1.6-8.9) K/mcL BMP 01/22/18 06:52 Sodium 139 Potassium 3.7 Chloride 110 H Carbon Dioxide 24 BUN 11 Creatinine 0.41 L Glucose 89 Calcium 8.7 - ABG Interpretation ABG results: PT/INR, D-dimer PT 32.9 Seconds (9.4-12.1) H 01/22/18 06:52 - VTE Documentation of Mechanical Device: Intermittent pneumatic compression device Consult Discharge Plan - Plan Referrals: Bishop Cevallos MD [Primary Care Provider] -
[2018-01-22] MEDS: Metoprolol XL (24 HR) Succ 50 MG TAB.ER.24H PO SCH (10:18)
[2018-01-22] MEDS: cefTRIAXone 2,000 MG in Water for inj. (sterile) 20 ML 20 ML IVP SCH (10:18)
[2018-01-22] MEDS: Loratadine 10 MG TABLET PO SCH (10:18)
[2018-01-22] MEDS ORDERED: *HR* Warfarin 4 MG TABLET PO ONE (18:00)
[2018-01-22] MEDS ORDERED: Warfarin perPT PO PRN (18:00)
[2018-01-23] MEDS: 0.9 % Sodium Chloride 1,000 ML IVC SCH (03:32)
[2018-01-23] MEDS: Acetaminophen 325 MG TABLET PO PRN (04:27)
[2018-01-23 05:53] LABS: Basophils % 0.3 %; Eosinophils # 0.1 K/mcL (0.0-0.6); Eosinophils % 1.6 %; Hematocrit 29.7 % (35.3-44.9); Hemoglobin 9.2 g/dL (11.5-15.4); Immature Granulocytes % 0.6 % (0-4); Lymphocytes # 1.1 K/mcL (0.6-4.6); Lymphocytes % 15.3 %; Mean Corpuscular Hemoglobin 29.9 pg (28.0-33.3); Mean Corpuscular Volume 96.4 fL (83.0-100.0); Monocytes # 0.5 K/mcL (0.0-1.3); Monocytes % 7.6 %; Neutrophils # 5.2 K/mcL (1.6-8.9); Platelet Count 246 K/mcL (140-400); Red Blood Count 3.08 M/mcL (3.82-4.97); Red Cell Distribution Width 16.5 % (11.5-14.5); Segmented Neutrophils % 74.6 %
[2018-01-23 06:01] LABS: INR 2.8; Prothrombin Time 31.2 Seconds (9.4-12.1)
[2018-01-23 06:10] LABS: BUN/Creatinine Ratio 17 (6-26); Blood Urea Nitrogen 7 mg/dL (8-23); Calcium 8.6 mg/dL (8.6-10.3); Carbon Dioxide 26 mEq/L (23-29); Chloride 110 mEq/L (98-107); Glucose 100 mg/dL (70-105); Osmolality,Calculated 288 (280-300); Potassium 3.5 mEq/L (3.5-5.1); Sodium 140 mEq/L (136-145); eGFR For African Americans > 60 (> 60); eGFR For Non-African Americans > 60 (> 60)
[2018-01-23] MEDS: Loratadine 10 MG TABLET PO SCH (08:03)
[2018-01-23] MEDS: Metoprolol XL (24 HR) Succ 50 MG TAB.ER.24H PO SCH (08:03)
[2018-01-23] MEDS: cefTRIAXone 2,000 MG in Water for inj. (sterile) 20 ML 20 ML IVP SCH (08:32)
[2018-01-23 10:47] VITALS: BP 120/78
--- NOTE | 2018-01-23 12:51 | Discharge Summary ---
Date of Encounter: 01/23/18 Time of Encounter: 11:00 - Discharge Diagnosis (1) UTI (urinary tract infection) Priority: Primary Status: Acute Qualifiers: Urinary tract infection type: site unspecified Hematuria presence: with hematuria Qualified Code(s): N39.0 - Urinary tract infection, site not specified; R31.9 - Hematuria, unspecified (2) Atrial flutter with rapid ventricular response Priority: Secondary Status: Acute (3) HTN (hypertension) Priority: Secondary Status: Chronic Qualifiers: Hypertension type: essential hypertension Qualified Code(s): I10 - Essential (primary) hypertension (4) VTE (venous thromboembolism) Priority: Secondary Status: Acute (5) Ovarian cancer Priority: Secondary Status: Acute Qualifiers: Laterality: left Qualified Code(s): 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 Gaffney is a 68 year old female who presents with UTI and SIRS syndrome She started to develop symptoms yesterday with urinary frequency with nocturia almost every hour last night that did not improve with time. Today she developed emesis that is associated with half an hour of chills and rhinitis at about 3:30 PM. Of note she had a complicated history to include initial right lower extremity DVT and a PE that was provoked by ovarian cancer in last May. She subsequently underwent neoadjuvant chemotherapy before completing a total abdominal hysterectomy, bilateral oophorectomy at the [facility] on this year. She also report rectocele repair. Postoperatively surgery was complicated by bleeding where she was at [facility] for 1 week and was discharged on Friday. At [facility] her anticoagulation was reversed by vitamin K and was watched. She improve with conservative therapy and was discharged back on Coumadin this past Friday. EKG personally reviewed with rate 120, sinus tachycardia 01/23: Patient did well. Her white blood cell count normalized. Electrolytes normalized. She remained afebrile. Urine culture grew out pansensitive Escherichia coli. The cultures 2 were negative. On day of discharge patient was day #3 of IV Rocephin. He was transitioned to Keflex 500 mg by mouth 4 times a day for 4 additional days to complete a 7 day course. Patient was otherwise doing well and deemed stable for discharge. It was felt that her recent catheterization related to her last admission could have contributed to her urinary tract infection, she had urinary tract infection. On her last admission, her catheter was present and was discharged on Friday, 5 days ago. She relates that she felt she had a low-grade temperature that day. All her other issues remained stable. Her INR was 2.8 at discharge. She will continue on her current Coumadin dosing. Discharge discussed with: patient - Time Spent with Patient Total time spent providing and/or coordinating discharge services: Less than 30 minutes - Discharge Medications Home Medications: Loratadine [Allergy Relief] 10 mg PO DAILY 06/01/17 [History] Multivitamin [Multivitamins] 1 cap PO DAILY 06/01/17 [History] [place]-3/Dha/Epa/Fish Oil [Fish Oil 1,000 mg Softgel] 1 each PO DAILY 06/01/17 [ History] Pravastatin Sodium [Pravachol] 20 mg PO QPM 06/01/17 [History] Metoprolol XL (24 HR) Succ [Toprol Xl] 50 mg PO DAILY #30 tab.er.24h 06/05/17 [ Rx] Vitamin E (Dl,Tocopheryl Acet) [Vitamin E] 400 unit PO DAILY 06/11/17 [History] Polyethylene Glycol 3350 [MiraLAX] 17 gm PO DAILY PRN #30 powd.pack 08/12/17 [Rx ] Warfarin [Coumadin] 7.5 mg PO DAILY 01/10/18 [History] Docusate Sodium [Dok] 100 mg PO BID 01/20/18 [History] Cephalexin [Keflex] 500 mg PO QID 4 Days #16 capsule 01/23/18 [Rx] Allergies/Adverse Reactions: 3 Allergy/AdvReac Type Severity Reaction Status Date / Time azithromycin Allergy Rash Verified 01/20/18 20:08 [From Zithromax Z-[place]] Oxycodone AdvReac Dizziness Verified 01/20/18 20:09 Date of admission: 01/20/18 22:51 Primary care physician: Bishop Cevallos MD Discharging clinician: Johan Watson Anticipated date of discharge: 01/23/18 - Constitutional Vitals: Temp Pulse Resp BP Pulse Ox 98.4 F 96 17 120/78 96 01/23/18 10:46 01/23/18 10:46 01/23/18 10:46 01/23/18 10:46 01/23/18 10:46 General appearance: Present: A&O X 3, obese - Head Head exam: Present: atraumatic, normocephalic - Eye Eye exam: Present: PERRL, conjuntiva pink, sclera anicteric Pupils: Present: PERRL - Neck Neck exam general surgery: Present: supple, trachea midline. Absent: lymphadenopathy - Respiratory Respiratory exam: Present: CTAB. Absent: accessory muscle use, rales, rhonchi, wheezes - Cardiovascular Cardiovascular exam: Present: RRR, +S1, +S2. Absent: diastolic murmur, gallop, rubs, systolic murmur - GI/Abdominal GI/Abdominal exam: Present: normal bowel sounds, soft, no peritoneal signs. Absent: distended, tenderness - Extremities Exam Extremities exam: Present: warm, radial pulses palpable and symmetrical. Absent : calf tenderness, cyanotic, pedal edema - Neurological Exam Neurological exam: Present: CN II-XII intact, oriented X3, no focal deficits. Absent: pronater drift, facial droop, speech deficit - Skin Skin exam: Present: dry, intact - Patient Status Disposition: Home, Self-Care Condition: Good Functional capacity at discharge: independent ambulation Overall status at discharge: patient is back to baseline - Discharge Instructions Instructions: Urinary Tract Infection in Women (DC) Follow Up With: Bishop Cevallos MD [Primary Care Provider] - Additional Instructions: Please drink at least 2 L of fluid daily - Diet and Activity Activity: resume usual activities as tolerated Diet: advance to your usual diet - VTE Documentation of Mechanical Device: Intermittent pneumatic compression device
[2018-01-23] MEDS ORDERED: *HR* Warfarin 4 MG TABLET PO ONE (18:00)
== END 2018-01-23 14:38 | disposition home or self-care (01) | DRG 872 ==
LOC: EMEROO 19:57 → 3ANU 22:51
PROVIDERS: ADMIT Internal Medicine Hematology & Oncology; ATTEND Internal Medicine Hematology & Oncology